=== PATIENT | male | born 1950 | race Caucasian/White ===

== ENCOUNTER 2020-08-13 17:39 | Emergency (ER) | payer OTHER, SELFPAY ==
--- NOTE | 2020-08-13 17:48 | DI.RAD.S_ITS ---
PROCEDURE: XR FOOT RT MIN 3V INDICATIONS: rolled over on itself lateral rt foot pain TECHNIQUE: 3 views of the foot were acquired. COMPARISON: None. FINDINGS: Bones: No fractures or dislocations. No suspicious bony lesions. Calcaneal spur. Soft tissues: No tibiotalar joint effusion. Achilles tendon appears normal. IMPRESSION: No visualized acute fracture or dislocation. However, if clinical concern and/or pain persist, short interval imaging followup in 7-10 days is recommended, as occult injury cannot be definitively excluded. Dictated by: Imani Graf M.D. on 08/13/2020 at 18:06 Approved by: Imani Graf M.D. on 08/13/2020 at 18:06
[2020-08-13 17:51] VITALS: BP 197/95; PULSE 66; RESP 18; TEMP 36.6; O2SAT 100
--- NOTE | 2020-08-13 18:24 | ED_ITS ---
HPI - Extremity Injury (Lower) General Chief Complaint: Extremity Injury, Lower Stated Complaint: rolled his right foot, intense pain Time Seen by Provider: 08/13/20 17:56 Source: patient Mode of arrival: Wheelchair Limitations: no limitations History of Present Illness HPI Narrative: Patient is a 69-year-old male here for evaluation of right ankle/foot pain. He states that it occurred earlier today when he rolled his ankle while he was outside. Has been able to walk on it since then because of discomfort. Has not tried anything for symptoms prior to arrival. Review of Systems Musculoskeletal Musculoskeletal: Denies tingling Comments: Right ankle/foot pain Integumentary/Breasts Skin/Breast: Denies lesions and Denies rash Neurologic Neurologic: Denies tingling Hematologic/Lymphatic On Anticoagulants: No Patient History Medical History Healthy adult Social History lives independently: Yes Exam Initial Vital Signs Initial Vital Signs: Vital Signs Temperature 97.9 F 08/13/20 17:51 Pulse Rate 66 08/13/20 17:51 Respiratory Rate 18 08/13/20 17:51 Blood Pressure 197/95 H 08/13/20 17:51 Pulse Oximetry 100 08/13/20 17:51 Const General: cooperative and comfortable Limitations: mental status not altered HENNH Head: normal to inspection and normocephalic Cardio Pulses: dorsalis pedis present on the right Skin Lesions: no lesions Rashes: no rashes Neuro Sensory Exam: no sensory deficits noted Extrem Other: No proximal fibula tenderness. No calf tenderness. No tenderness of the Achilles tendon. No tenderness along the medial malleolus. He is tender along the inferior portion of the lateral malleolus and along the tibiotalar joint. Also tender palpation along the base of the 5th metatarsal. Psych Appearance: well kempt Procedures Orthopedic Splinting/Casting Injury #1: Side: right Lower Extremity Injury Location: ankle Lower Extremity Immobilizer: Ernst wrap Other Orthopedic Equipment: crutches Post splinting neuro exam: intact Post splinting vascular exam: intact Placed by: Nursing Course Orders Ordered: ED Orders 08/13/20 17:48 XR foot RT min 3V Stat Vital Signs Vital signs: Vital Signs - 8 hr 08/13/20 17:51 Temperature 97.9 F Pulse Rate 66 Respiratory Rate 18 Blood Pressure 197/95 H Pulse Oximetry 100 MDM - Extremity Injury (Lower) Imaging Data Extremity x-ray #1: Radiologist's Impression: [address] [id number] ReportSigned Patient: Rusty Gonzalez HMR#: [id number]: 3Acct:[id number]/Sex: 69 / MDate of Service: 08/13/20Loc: EDAccession Number: [id number] Procedure: XR foot RT min 3V Ordering Provider: Roland Foster D.O. PROCEDURE: XR FOOT RT MIN 3V INDICATIONS: rolled over on itself lateral rt foot pain TECHNIQUE: 3 views of the foot were acquired. COMPARISON: None. FINDINGS: Bones: No fractures or dislocations. No suspicious bony lesions. Calcaneal spur. Soft tissues: No tibiotalar joint effusion. Achilles tendon appears normal. IMPRESSION: No visualized acute fracture or dislocation. However, if clinical concern and/or pain persist, short interval imaging followup in 7-10 days is recommended, as occult injury cannot be definitively excluded. Dictated by: Imani Graf M.D. on 08/13/2020 at 18:06 Approved by: Imani Graf M.D. on 08/13/2020 at 18:06 [facility] [place] Narrative Medical decision making narrative: Patient is neurovascularly intact. No fractures were noted on the x-rays. I did re-evaluate the x-rays at the base of the 5th metatarsal and along the inferior aspect of the lateral malleolus and I did not see any fractures of these spots. We did discuss keeping his foot elevated. Discussed using ice. Using crutches for his comfort. He was given return precautions and follow-up instructions. He expressed understanding and agreement. Discharge Plan Departure Patient Disposition: Home Clinical Impression: Ankle sprain and strain Instructions: DI for Ankle Sprain Activity Restrictions/Additional Instructions: There were no fractures noted on the x-rays. This means that you can walk on your right foot/ankle as tolerated. I would recommend that for the next several days your keep your foot elevated and also use ice. You can expect bruising. Contact your primary provider for follow-up. Return to the emergency department for any new or worsening symptoms
== END 2020-08-13 18:59 | disposition home or self-care (01) ==
PROVIDERS: Emergency Provider Emergency Medicine
DX: S93.401A Sprain of unspecified ligament of right ankle, initial encounter (principal); S96.911A Strain of unspecified muscle and tendon at ankle and foot level, right foot, initial encounter; X58.XXXA Exposure to other specified factors, initial encounter
CPT/HCPCS: 73630; 99282; 99283